=== PATIENT | female | born 1980 | race Caucasian/White ===

== ENCOUNTER 2020-04-25 11:04 | Emergency (ER) | payer OTHER ==
[~2020-04-25] VITALS: Ht 162.6 cm; Wt 93.5 kg
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
[2020-04-25 12:05] VITALS: BP 98/72
== END 2020-04-25 12:05 | disposition home or self-care (01) ==
LOC: ER 11:04
DX: T76.21XA Adult sexual abuse, suspected, initial encounter (principal); R51.9 Headache, unspecified; X58.XXXA Exposure to other specified factors, initial encounter; Y93.89 Activity, other specified; Y92.89 Other specified places as the place of occurrence of the external cause; Y99.8 Other external cause status
CPT/HCPCS: 99281

== ENCOUNTER 2020-04-26 19:57 | Emergency (ER) | payer OTHER ==
[~2020-04-26] VITALS: Ht 162.6 cm; Wt 93.5 kg
[2020-04-26] MEDS ORDERED: IV RINGERS SOLUTION,LACTATED 1,000 ML IV ONE ×2 (20:30→22:45)
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
[2020-04-26 21:12] LABS: CALCIUM 9.1 mg/dL (8.5-10.1); GFR 61.4; POTASSIUM 3.6 mmol/L (3.5-5.1)
[2020-04-26 21:15] LABS: BASO % 0 % (0-3); EOS # 0.1 x10^3/uL (0.0-0.7); EOS % 1 % (0-3); HEMATOCRIT 43.7 % (36.0-47.0); HEMOGLOBIN 14.6 g/dL (12.0-15.5); LYMPH # 1.8 x10^3/uL (1.0-4.8); LYMPH % 25 % (24-48); MEAN CORPUSCULAR HEMOGLOBIN 32 pg (25-35); MEAN CORPUSCULAR HGB CONC 33 g/dL (31-37); MEAN CORPUSCULAR VOLUME 94 fL (79-100); MONO # 0.6 x10^3/uL (0.0-1.1); MONO % 9 % (0-9); NEUT # 4.5 x10^3uL (1.8-7.7); NEUT % 65 % (31-73); PLATELET COUNT 256 x10^3/uL (140-400); RED BLOOD COUNT 4.63 x10^6/uL (3.50-5.40); RED CELL DISTRIBUTION WIDTH 13.5 % (11.5-14.5)
[2020-04-26 21:17] LABS: ALBUMIN 3.8 g/dL (3.4-5.0); ALBUMIN/GLOBULIN RATIO 1.1 (1.0-1.7); TOTAL BILIRUBIN 0.4 mg/dL (0.2-1.0); TOTAL PROTEIN 7.3 g/dL (6.4-8.2)
[2020-04-26 21:21] LABS: COLOR,URINE BROWN
[2020-04-26 21:22] LABS: BACTERIA,URINE FEW /HPF (0-FEW); BARBITURATES NEG (NEG); BENZODIAZEPINES NEG (NEG); BILIRUBIN,URINE MOD (NEG); CANNABINOIDS POS (NEG); CLARITY,URINE TURBID; COCAINE NEG (NEG); GLUCOSE,URINE NEG (NEG); METHADONE NEG (NEG); NITRITE,URINE POS (NEG); OPIATES NEG (NEG); PHENCYCLIDINE NEG (NEG); SQUAMOUS EPITHELIAL CELL,UR MANY /LPF; UROBILINOGEN,URINE 0.2 mg/dL (0.2 mg/dL)
[2020-04-26 21:25] LABS: AMPHETAMINE/METHAMPHETAMINE POS (NEG)
[2020-04-26 21:49] LABS: SALIC < 2.8 mg/dL (2.8-20.0)
[2020-04-26 21:50] LABS: ACETAMIN < 2.0 mcg/mL (10-30)
[2020-04-26] MEDS ORDERED: HALOPERIDOL LACT 5 MG/ML VIAL. IVP ONE (22:45)
[2020-04-26] MEDS ORDERED: LORazepam 1 MG TABLET PO ONE (22:45)
[2020-04-26] MEDS ORDERED: IV NORMAL SALINE 50ML 50 ML ONE (23:03)
[2020-04-26] MEDS ORDERED: cefTRIAXone SODIUM 1 GM VIAL ONE (23:03)
[2020-04-27 00:25] VITALS: BP 119/66
[2020-04-27] MEDS ORDERED: CEPH500C PO (00:31)
== END 2020-04-27 00:47 ==
LOC: ER 19:57
DX: F22 Delusional disorders (principal); N39.0 Urinary tract infection, site not specified; Z20.822 Contact with and (suspected) exposure to COVID-19; F15.10 Other stimulant abuse, uncomplicated; F41.9 Anxiety disorder, unspecified; F31.9 Bipolar disorder, unspecified; M79.7 Fibromyalgia; Z90.49 Acquired absence of other specified parts of digestive tract; Z98.51 Tubal ligation status; Z98.890 Other specified postprocedural states; Z91.012 Allergy to eggs; Z91.013 Allergy to seafood
CPT/HCPCS: 36415; 80053; 80307; 80329; 81001; 81025; 82550; 84443; 85025; 87086; 87426; 96361; 96365; 96375; 99284; C9803; J0696; J1630; J7120; U0003; G0480

== ENCOUNTER → 2020-11-14 | Outpatient (CLI) | payer OTHER ==
[~2020-11-14] MED LIST: CEPH500C PO
--- NOTE | 2020-11-14 12:13 | RAD ---
XR HAND_LEFT 3 VIEWS History: Left fifth digit pain Comparison: None. Technique: 3 views of left hand. Findings: Mild periarticular osteopenia. No fracture or dislocaton. No osseous erosive process. No significant degenerative changes. Soft tissues are unremarkable. Impression: 1. No acute osseous abnormality of the left hand. 2. Mild periarticular osteopenia can be seen in etiologies such as rheumatoid arthritis, however no erosive process identified. Electronically signed by: Eliecer Awan MD (11/14/2020 12:11 PM) [id number]
== END ==
LOC: PMG 11:40
PROVIDERS: ATTEND Nurse Practitioner Family
DX: M85.842 Other specified disorders of bone density and structure, left hand (principal)
CPT/HCPCS: 73130

== ENCOUNTER 2020-12-08 17:45 | Emergency (ER) | payer OTHER ==
[~2020-12-08] VITALS: Ht 162.6 cm; Wt 89.0 kg
--- NOTE | 2020-12-08 18:22 | PHYS DOC ---
Past History Past Medical History: Anxiety, Bipolar, Fibromyalgia (ILYA CHRISTIE APRN) Past Surgical History: Cholecystectomy, Tubal ligation, Other Additional Past Surgical Histo: D&C; 5th finger surgery (ILYA CHRISTIE APRN) Alcohol Use: None (ILYA CHRISTIE APRN) General Adult EDM: Chief Complaint: SUICIDAL IDEATION HPI: HPI: Patient is a 40-year-old female who presents to the emergency department for suicidal ideation and attempt. Patient states that around 1630 she took 60 1mg prazosin. Patient states that she takes this medication for night terrors she states that she took these medications to kill herself in response to her daughter being taken into [facility] custody. Patient reports multiple attempts of suicide in the past. She reports being inpatient at [facility] 2 months ago. Following admission is remarkable she was placed on risperidone. Patient is supposed to follow-up with the [facility] outpatient but does not find it very useful and does not follow-up as she is supposed to. Patient's only complaint is a frontal headache. She states that it is mild. She denies any nausea, vomiting, chest pain, shortness of breath, visual changes, hallucinati ons. Patient denies any homicidal ideation. (ILYA CHRISTIE APRN) Review of Systems: Review of Systems: Eyes: See HPI Respiratory: See HPI Cardiovascular: See HPI GI: See HPI Neurologic: See HPI Psychiatric: See HPI (ILYA CHRISTIE APRN) Allergies: Allergies: Allergies Coded Allergies Type Severity Reaction Last Updated Verified egg Allergy Unknown 04/25/20 Yes shrimp Allergy Unknown 04/25/20 Yes (ILYA CHRISTIE APRN) Physical Exam: PE: Constitutional: Well developed, well nourished, no acute distress, non-toxic appearance. [] HENT: Normocephalic, atraumatic Eyes: PERRLA, 4 mm bilaterally EOMI, conjunctiva normal, no discharge. [] Neck: Normal range of motion, no stridor Cardiovascular:Heart rate tachycardic rhythm, no murmur [] Lungs & Thorax: Bilateral breath sounds clear to auscultation [] Abdomen: soft, no tenderness, no masses, no pulsatile masses. [] Skin: Warm, dry, no erythema, no rash. [] Back: Normal range of motion Extremities: No tenderness, no cyanosis, no clubbing, ROM intact, no edema. [] Neurologic: Alert and oriented X 3, normal motor function, normal sensory function, no focal deficits noted. [] Psychologic: Affect normal, judgement normal, mood normal. [] (ILYA CHRISTIE APRN) Current Patient Data: Labs: Laboratory Tests Test 12/08/20 18:04 12/08/20 18:11 White Blood Count 10.1 x10^3/uL Red Blood Count 4.68 x10^6/uL Hemoglobin 15.1 g/dL Hematocrit 43.9 % Mean Corpuscular Volume 94 fL Mean Corpuscular Hemoglobin 32 pg Mean Corpuscular Hemoglobin Concent 34 g/dL Red Cell Distribution Width 13.6 % Platelet Count 238 x10^3/uL Neutrophils (%) (Auto) 73 % Lymphocytes (%) (Auto) 21 % Monocytes (%) (Auto) 6 % Eosinophils (%) (Auto) 1 % Basophils (%) (Auto) 1 % Neutrophils # (Auto) 7.3 x10^3uL Lymphocytes # (Auto) 2.1 x10^3/uL Monocytes # (Auto) 0.6 x10^3/uL Eosinophils # (Auto) 0.0 x10^3/uL Basophils # (Auto) 0.0 x10^3/uL Urine Collection Type Unknown Urine Color Yellow Urine Clarity Clear Urine pH 6.0 Urine Specific [place] 1.010 Urine Protein Neg Urine Glucose (UA) Neg mg/dL Urine Ketones (Stick) Neg mg/dL Urine Blood Neg Urine Nitrite Neg Urine Bilirubin Neg Urine Urobilinogen Dipstick 0.2 mg/dL Urine Leukocyte Esterase Small Urine RBC 0 /HPF Urine WBC 5-10 /HPF Urine Squamous Epithelial Cells Mod /LPF Urine Bacteria Mod /HPF Sodium Level 140 mmol/L Potassium Level 3.5 mmol/L Chloride Level 103 mmol/L Carbon Dioxide Level 22 mmol/L Anion Gap 15 Blood Urea Nitrogen 10 mg/dL Creatinine 0.9 mg/dL Estimated GFR (Cockcroft-Gault) 69.3 BUN/Creatinine Ratio 11 Glucose Level 94 mg/dL Calcium Level 9.5 mg/dL Total Bilirubin 0.3 mg/dL Aspartate Amino Transf (AST/SGOT) 16 U/L Alanine Aminotransferase (ALT/SGPT) 21 U/L Alkaline Phosphatase 61 U/L Total Protein 7.3 g/dL Albumin 4.0 g/dL Albumin/Globulin Ratio 1.2 Salicylates Level 5.0 mg/dL Salicylate Last Dose Date Na Salicylate Last Dose Time Na Urine Opiates Screen Neg Urine Methadone Screen Neg Acetaminophen Level < 2.0 mcg/mL Acetaminophen Last Dose Date Na Acetaminophen Last Dose Time Na Urine Barbiturates Neg Urine Phencyclidine Screen Neg Urine Amphetamine/Methamphetamine Neg Urine Benzodiazepines Screen Neg Urine Cocaine Screen Neg Urine Cannabinoids Screen Pos Ethyl Alcohol Level 12 mg/dL Urine Ethyl Alcohol Pos SARS-CoV-2 Antigen (Rapid) Negative Current Medications Medications (Trade) Dose Ordered Sig/Arvind Route PRN Reason Start Time Stop Time Status Last Admin Dose Admin Sodium Chloride 1,000 ml @ 1,000 mls/hr 1X ONCE IV 12/08/20 18:30 12/08/20 19:29 DC Cephalexin HCl (Keflex) 500 mg 1X ONCE PO 12/08/20 20:15 12/08/20 20:16 DC Vital Signs: Vital Signs Date Time Temp Pulse Resp B/P (MAP) Pulse Ox O2 Delivery O2 Flow Rate FiO2 12/08/20 17:54 97.7 109 16 118/72 (87) 97 Room Air (ILYA CHRISTIE APRN) EKG: EKG: EKG performed by ER staff at 1815 shows sinus rhythm with a heart rate of 91, QTc of 447, no STEMI read by Dr. Esqueda at 1821. [] (ILYA CHRISTIE APRN) Radiology/Procedures: Radiology/Procedures: [] (ILYA CHRISTIE APRN) Heart Score: C/O Chest Pain: No Risk Factors: Risk Factors: DM, Current or recent (<one month) smoker, HTN, HLP, family history of CAD, obesity. Risk Scores: Score 0 - 3: 2.5% MACE over next 6 weeks - Discharge Home Score 4 - 6: 20.3% MACE over next 6 weeks - Admit for Clinical Observation Score 7 - 10: 72.7% MACE over next 6 weeks - Early Invasive Strategies (ILYA CHRISTIE APRN) Course & Med Decision Making: Course & Med Decision Making Pertinent Labs and Imaging studies reviewed. (See chart for details) Patient is a 40-year-old female who presents to the emergency department for suicidal ideation and attempt. Patient states that around 1630 she took 60 1mg prazosin. I spoke with poison control who advised to watch for tachycardia, hypotension, [employer] depression. Treatment for this is supportive care. They advised to watch for seizure-like activity or agitation. If patient develops hy potension, fluids and vasopressors can be ordered. They advised to order along with regular blood work. Tylenol and salicylate level as well as an EKG and cardiac monitoring. They advised to monitor patient for 6 hours. In addition to this lab work, screening lab work performed for our psychiatric assessment team consultation. Patient's vital signs are stable at this time she is mildly tachycardic and not hypotensive at triage. Patients lab work was unremarkable. She was positive for marijuana and alcohol but had a low ethanol level. Patients UA was positive for UTI and she was treated with antibiotic and given first dose in ER. Patient evaluated by PAT and is pending inpatient placement at this time 2210. 2336: RN received a phone call from [facility] requesting serial orthostatic vital signs over a couple of hours prior to them determining if they will accept patient. Order placed. Patient treated with IV fluids. 0028: Awaiting serial orthostatic vital signs and potential placement at [facility]. I discussed patients case with supervising physician and he will assume patient care at this time 0041. (ILYA CHRISTIE APRN) Dragon Disclaimer: Dragon Disclaimer: This electronic medical record was generated, in whole or in part, using a voice recognition dictation system. (ILYA CHRISTIE APRN) Attending Co-Sign The patient was seen and interviewed as well as examined at the bedside. The chart was reviewed. The case was discussed. Agree with the plan of care. (MARIAN ESQUEDA DO) Departure Departure: Impression: Primary Impression: Suicidal ideation Disposition: [facility] Condition: STABLE Referrals: NON,STAFF (PCP) Patient Instructions: Suicidal Feelings, How to Help Yourself Scripts Cephalexin (CEPHALEXIN) 500 Mg Tablet 1 TAB PO BID for UTI for 7 Days, #14 TAB 0 Refills Prov: ILYA CHRISITE APRN 12/08/20 ILYA CHRISTIE APRN Dec 08, 2020 18:22 MARIAN ESQUEDA DO Dec 09, 2020 01:29
--- NOTE | 2020-12-08 18:24 | EKG ---
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
[2020-12-08] MEDS: IV NORMAL SALINE 1,000ML 1,000 ML IV ONE (18:30)
[2020-12-08 18:41] LABS: BASO % 1 % (0-3); EOS % 1 % (0-3); HEMATOCRIT 43.9 % (36.0-47.0); HEMOGLOBIN 15.1 g/dL (12.0-15.5); LYMPH # 2.1 x10^3/uL (1.0-4.8); LYMPH % 21 % (24-48); MEAN CORPUSCULAR HEMOGLOBIN 32 pg (25-35); MEAN CORPUSCULAR HGB CONC 34 g/dL (31-37); MEAN CORPUSCULAR VOLUME 94 fL (79-100); MONO # 0.6 x10^3/uL (0.0-1.1); MONO % 6 % (0-9); NEUT # 7.3 x10^3uL (1.8-7.7); NEUT % 73 % (31-73); PLATELET COUNT 238 x10^3/uL (140-400); RED BLOOD COUNT 4.68 x10^6/uL (3.50-5.40); RED CELL DISTRIBUTION WIDTH 13.6 % (11.5-14.5); WHITE BLOOD COUNT 10.1 x10^3/uL (4.0-11.0)
[2020-12-08 18:50] LABS: CALCIUM 9.5 mg/dL (8.5-10.1); CREATININE 0.9 mg/dL (0.6-1.0); GFR 69.3; POTASSIUM 3.5 mmol/L (3.5-5.1)
[2020-12-08 18:54] LABS: BARBITURATES NEG (NEG); BENZODIAZEPINES NEG (NEG); CANNABINOIDS POS (NEG); CLARITY,URINE CLEAR; COCAINE NEG (NEG); COLOR,URINE YELLOW; METHADONE NEG (NEG); OPIATES NEG (NEG); PHENCYCLIDINE NEG (NEG)
[2020-12-08 18:55] LABS: BACTERIA,URINE MOD /HPF (0-FEW); BILIRUBIN,URINE NEG (NEG); GLUCOSE,URINE NEG (NEG); NITRITE,URINE NEG (NEG); RBC,URINE 0 /HPF (0-2); SQUAMOUS EPITHELIAL CELL,UR MOD /LPF; UROBILINOGEN,URINE 0.2 mg/dL (0.2 mg/dL)
[2020-12-08 18:56] LABS: AMPHETAMINE/METHAMPHETAMINE NEG (NEG)
[2020-12-08 18:57] LABS: ALBUMIN/GLOBULIN RATIO 1.2 (1.0-1.7); TOTAL BILIRUBIN 0.3 mg/dL (0.2-1.0); TOTAL PROTEIN 7.3 g/dL (6.4-8.2)
[2020-12-08 19:40] LABS: ACETAMIN < 2.0 mcg/mL (10-30)
[2020-12-08] MEDS ORDERED: CEPH500T PO (22:12)
[2020-12-09] MEDS: IV NORMAL SALINE 1,000ML 1,000 ML IV ONE
[2020-12-09] MEDS ORDERED: CEPHALEXIN 250 MG CAPSULE ONE (04:45)
[2020-12-09] MEDS: CEPHALEXIN 250 MG CAPSULE PO ONE (04:50)
[2020-12-09 06:21] VITALS: BP 102/60
== END 2020-12-09 08:22 ==
LOC: ER 17:45
DX: R45.851 Suicidal ideations (principal); F41.9 Anxiety disorder, unspecified; F31.9 Bipolar disorder, unspecified; M79.7 Fibromyalgia; Z20.822 Contact with and (suspected) exposure to COVID-19; Z91.013 Allergy to seafood; Z91.012 Allergy to eggs
CPT/HCPCS: 36415; 80053; 80307; 80329; 81001; 85025; 87086; 87426; 93005; 96360; 96361; 99285; G0480; J7030; U0003

== ENCOUNTER 2020-12-23 14:18 | Emergency (ER) | payer OTHER ==
[~2020-12-23] VITALS: Ht 162.6 cm; Wt 90.0 kg
[~2020-12-23 14:18] MED LIST changes: +CEPH500T PO
--- NOTE | 2020-12-23 14:40 | PHYS DOC ---
Past History Past Medical History: Anxiety, Bipolar, Fibromyalgia Past Surgical History: Cholecystectomy, Tubal ligation, Other Additional Past Surgical Histo: D&C; 5th finger surgery Alcohol Use: Occasionally General Adult EDM: Chief Complaint: ALLERGIC REACTION HPI: HPI: Patient is a 40-year-old female who presents to the emergency department from urgent care for an allergic reaction. Patient states that she is allergic to egg whites and shellfish. She has widespread itchy hives to her entire body. She reports that she did feel like there was a lump in her throat and had pain w ith swallowing but that improved after she took a Claritin. Patient denies shortness of breath, pain with swallowing, nausea, vomiting or fevers. Review of Systems: Review of Systems: 14 body systems of the review of systems have been reviewed. See HPI for pertinent positive and negative responses, otherwise all other systems are negative, nonpertinent or noncontributory Current Medications: Current Meds: Current Medications Medications (Trade) Dose Ordered Sig/Arvind Start Time Stop Time Status Last Admin Dose Admin Diphenhydramine HCl (Benadryl) 50 mg 1X ONCE 12/23/20 14:30 12/23/20 14:31 UNV Famotidine (Pepcid Vial) 40 mg 1X ONCE 12/23/20 14:30 12/23/20 14:31 UNV Methylprednisolone Sodium Succinate (SOLU-Medrol 125MG VIAL) 125 mg 1X ONCE 12/23/20 14:30 12/23/20 14:31 UNV Allergies: Allergies: Allergies Coded Allergies Type Severity Reaction Last Updated Verified egg Allergy Unknown 04/25/20 Yes shrimp Allergy Unknown 04/25/20 Yes Physical Exam: PE: Constitutional: Well developed, well nourished, no acute distress, non-toxic appearance. [] HENT: Normocephalic, atraumatic, bilateral external ears normal, oropharynx moist, no airway erythema or enlargement, 3 papillae noted to the back of patient's tongue that are minimally erythematous, no oral exudates, nose normal. [] Eyes: PERRL, EOMI, conjunctiva normal, no discharge. [] Neck: Normal range of motion, no tenderness, supple, no stridor. [] Cardiovascular:Heart rate tachycardic rhythm, no murmur [] Lungs & Thorax: Bilateral breath sounds clear to auscultation [] Abdomen: Bowel sounds normal, soft, no tenderness, no masses, no pulsatile masses. [] Skin: Warm, dry, no erythema, hive-like erythematous rash noted to entire body Back: Normal range of motion Extremities: No tenderness, no cyanosis, no clubbing, ROM intact, no edema. [] Neurologic: Alert and oriented X 3, normal motor function, normal sensory function, no focal deficits noted. [] Psychologic: Affect normal, judgement normal, mood normal. [] EKG: EKG: [] Radiology/Procedures: Radiology/Procedures: [] Heart Score: C/O Chest Pain: N/A Risk Factors: Risk Factors: DM, Current or recent (<one month) smoker, HTN, HLP, family history of CAD, obesity. Risk Scores: Score 0 - 3: 2.5% MACE over next 6 weeks - Discharge Home Score 4 - 6: 20.3% MACE over next 6 weeks - Admit for Clinical Observation Score 7 - 10: 72.7% MACE over next 6 weeks - Early Invasive Strategies Course & Med Decision Making: Course & Med Decision Making Pertinent Labs and Imaging studies reviewed. (See chart for details) [] Patient presents to the emergency department for an allergic reaction. Patient was noted to have widespread erythematous hives that were itchy to her entire body. There is no airway edema noted. Patient treated with Benadryl, Pepcid and Solu-Medrol. Patient reports improvement in her symptoms following treatment in the ER, her hives have improved, airway remains patent with no edema. VSS, no longer tachycardic. Patient is able to maintain secretions. Hypokalemia noted-replaced in ER. Advised to increase potassium intake at home. Leukocytosis most likely due to allergic reaction. Patient be discharged home with steroid, advised to take Benadryl and Pepcid at home. Follow-up with primary care provider. I discussed with patient all findings and diagnostic testing as well as the need to follow-up with PCP for further evaluation and treatment or return to the ER if any new or worsening symptoms. Strict return precautions were also discussed at length. Patient voiced understanding and agr eement with the plan. Patient is hemodynamically stable at the time of disposition. Oh Disclaimer: Oh Disclaimer: This electronic medical record was generated, in whole or in part, using a voice recognition dictation system. Departure Departure: Impression: Primary Impression: Allergic reaction Qualified Codes: T78.40XA - Allergy, unspecified, initial encounter Disposition: HOME / SELF CARE / HOMELESS Condition: GOOD Referrals: DASHA MARIE (PCP) Patient Instructions: Food Allergy and Anaphylaxis Additional Instructions: You were seen in the emergency department today for an allergic reaction. You reported improvement in your symptoms following treatment in the emergency department. You were noted to have a mild decrease in your potassium levels, this was replaced in ER. Make sure you are eating potassium rich foods at home like green leafy vegetables. At home you can take 50 mg of Benadryl every 6-8 hours. You can also take 20 mg of Pepcid twice a day. You are being discharged home with a steroid, take this as directed. Follow-up with your primary care provider tomorrow regarding your ER visit. Return to the emergency department if you develop chest pain, shortness of breath, difficulty swallowing or breathing, high fevers refractory to treatment or intractable nausea or vomiting. EMERGENCY DEPARTMENT GENERAL DISCHARGE INSTRUCTIONS Thank you for coming to [facility] (ED) today and trusting us with you care. We trust that you had a positivie experience in our Emergency Department. If you wish to speak to the department management, you may call the director at [phone]. YOUR FOLLOW UP INSTRUCTIONS ARE FOLLOWS: 1. Do you have a private Doctor? If you do not have a private doctor, please ask for a resource list of physicians or clinics that may be able to assist you with follow up care. 2. The Emergency Physician has interpreted your x-rays. The X-Ray specialist will also review them. If there is a change in the findings, you will be notified in 48 hours when at all possible. 3. A lab test or culture has been done, your results will be reviewed and you will be notified if you need a change in treatment. ADDITIONAL INSTRUCTIONS AND INFORMATION: 1. Your care today has been supervised by a physician who is specially trained in emergency care. Many problems require more than one evaluation for a complete diagnosis and treatment. We recommend that you schedule your follow up appointment as recommended to ensure complete treatment of you illness or injury. If you are unable to obtain follow up care and continue to have a problem, or if your condition worsens, we recommend that you return to the ED. 2. We are not able to safely determine your condition over the phone nor are we able to give sound medical advice over the phone. For these safety reasons, if you call for medical advice we will ask you to come to the ED for further evaluation. 3. If you have any questions regarding these discharge instructions please call the ED at [phone]. SAFETY INFORMATION: In the interest of safety, wellness, and injury prevention; we encourage you to wear your sealbelt, if you smoke; quite smoking, and we encourage family to use a protective helmet for bicycling and other sporting events that present an increased risk for head injury. IF YOUR SYMPTOMS WORSEN OR NEW SYMPTOMS DEVELOP, OR YOU HAVE CONCERNS ABOUT YOUR CONDITION; OR IF YOUR CONDITION WORSENS WHILE YOU ARE WAITING FOR YOUR FOLLOW UP APPOINTMENT; EITHER CONTACT YOUR PRIMARY CARE DOCTOR, THE PHYSICIAN WHOSE NAME AND NUMBER YOU WERE GIVEN, OR RETURN TO THE ED IMMEDIATELY. Scripts Prednisone (PREDNISONE) 20 Mg Tablet 2 TAB PO DAILY for allergies for 5 Days, #10 TAB 0 Refills Prov: ILYA CHRISTIE APRN 12/23/20 ILYA CHRISTIE APRN Dec 23, 2020 14:40
[2020-12-23] MEDS: methylPREDNISolone SOD SUCC PF 125 MG/2 ML VIAL. IV ONE (15:07)
[2020-12-23] MEDS: FAMOTIDINE 20 MG/2 ML VIAL IVP ONE (15:08)
[2020-12-23] MEDS: diphenhydrAMINE 50 MG/ML VIAL IVP ONE (15:08)
[2020-12-23 15:24] VITALS: BP 134/78
[2020-12-23 15:37] LABS: BASO # 0.1 x10^3/uL (0.0-0.2); BASO % 0 % (0-3); EOS # 0.1 x10^3/uL (0.0-0.7); EOS % 1 % (0-3); HEMATOCRIT 47.1 % (36.0-47.0); HEMOGLOBIN 15.9 g/dL (12.0-15.5); LYMPH # 2.7 x10^3/uL (1.0-4.8); LYMPH % 20 % (24-48); MEAN CORPUSCULAR HEMOGLOBIN 32 pg (25-35); MEAN CORPUSCULAR HGB CONC 34 g/dL (31-37); MEAN CORPUSCULAR VOLUME 95 fL (79-100); MONO # 0.7 x10^3/uL (0.0-1.1); MONO % 5 % (0-9); NEUT # 9.9 x10^3uL (1.8-7.7); NEUT % 74 % (31-73); PLATELET COUNT 278 x10^3/uL (140-400); RED BLOOD COUNT 4.97 x10^6/uL (3.50-5.40); RED CELL DISTRIBUTION WIDTH 13.6 % (11.5-14.5); WHITE BLOOD COUNT 13.4 x10^3/uL (4.0-11.0)
[2020-12-23 15:59] LABS: CALCIUM 9.6 mg/dL (8.5-10.1); CREATININE 0.9 mg/dL (0.6-1.0); GFR 69.3; POTASSIUM 3.4 mmol/L (3.5-5.1)
[2020-12-23 16:04] LABS: ALBUMIN 3.8 g/dL (3.4-5.0); ALBUMIN/GLOBULIN RATIO 1.2 (1.0-1.7); TOTAL BILIRUBIN 0.3 mg/dL (0.2-1.0)
[2020-12-23] MEDS ORDERED: PRED20TA PO (16:20)
[2020-12-23] MEDS: POTASSIUM CHLORIDE 20 MEQ TABLET.ER. PO ONE (16:30)
== END 2020-12-23 16:48 | disposition home or self-care (01) ==
LOC: ER 14:18
DX: T78.40XA Allergy, unspecified, initial encounter (principal); X58.XXXA Exposure to other specified factors, initial encounter
CPT/HCPCS: 36415; 80053; 85025; 96374; 96375; 99284; J1200; J2930; J3490

== ENCOUNTER 2021-03-09 15:36 | Emergency (ER) | payer OTHER ==
[~2021-03-09] VITALS: Ht 162.6 cm; Wt 90.0 kg
[~2021-03-09 15:36] MED LIST changes: +PRED20TA PO
[2021-03-09 15:40] VITALS: BP 122/75
--- NOTE | 2021-03-09 15:47 | PHYS DOC ---
Past History Past Medical History: Anxiety, Bipolar, Fibromyalgia Additional Past Medical Histor: fibromyalgia Past Surgical History: Cholecystectomy Additional Past Surgical Histo: D&C; 5th finger surgery Alcohol Use: None Adult General Chief Complaint Chief Complaint: ALLERGIC REACTION HPI HPI Patient is a 41-year-old female presenting via POV for allergic reaction. States she thinks she is allergic to the color/dye on the tablets of Tylenol. Reports approximately 3 hours prior to arrival taking x1 [id number] Tylenol and approximately 1 hour later started having a generalized rash that appeared on her face, upper extremities and torso. She took an unknown amount of children's Benadryl approximately 45 minutes prior to arrival that improved her symptoms but still has a rash prompting her to come in for evaluation Review of Systems Review of Systems Fourteen body systems of review of systems have been reviewed. See HPI for pertinent positives and negative responses, other bang all other systems are negative, non-pertinent or non-contributory Allergies Allergies Allergies Coded Allergies Type Severity Reaction Last Updated Verified egg Allergy Unknown 04/25/20 Yes shrimp Allergy Unknown 04/25/20 Yes Physical Exam Physical Exam Constitutional: Well developed, well nourished, no acute distress, non-toxic appearance. HENT: Normocephalic, atraumatic, bilateral external ears normal, oropharynx moist, no oral exudates, nose normal. No phonation changes, tolerating her secretions and speaking in full sentences Eyes: PERRLA, EOMI, conjunctiva normal, no discharge. Neck: Normal range of motion, no tenderness, supple, no stridor. Cardiovascular: Heart rate regular, sinus rhythm, no murmurs rubs or gallops Lungs & Thorax: Bilateral breath sounds clear to auscultation Abdomen: Bowel sounds normal, soft, no tenderness, no masses, no pulsatile masses. Nonsurgical abdomen, no peritoneal signs Skin: Warm, dry, no erythema, eukaryal rash present to bilateral cheeks, upper extremities and torso Back: No tenderness, no CVA tenderness. Extremities: No tenderness, no cyanosis, no clubbing, ROM intact, no edema. Neurologic: Alert and oriented X 3, grossly normal motor & sensory function, no focal deficits noted. Psychologic: Affect normal, judgement normal, mood normal. Current Patient Data Vital Signs Vital Signs Date Time Temp Pulse Resp B/P (MAP) Pulse Ox O2 Delivery O2 Flow Rate FiO2 03/09/21 15:40 97.8 102 18 122/75 (91) 98 Room Air Vital Signs Date Time Temp Pulse Resp B/P (MAP) Pulse Ox O2 Delivery O2 Flow Rate FiO2 03/09/21 15:40 97.8 102 18 122/75 (91) 98 Room Air EKG EKG [] Radiology/Procedures Radiology/Procedures [] Heart Score C/O Chest Pain: No Risk Factors: Risk Factors: DM, Current or recent (<one month) smoker, HTN, HLP, family history of CAD, obesity. Risk Scores: Risk Factors: DM, Current or recent (<one month) smoker, HTN, HLP, family history of CAD, obesity. Course & Med Decision Making Course & Med Decision Making ABCs unremarkable HPI and physical exam consistent with likely drug-related reaction from Tylenol with suspicion being dye on actual tablets Patient received Benadryl prior to arrival, steroids and Pepcid administered while in ER setting with near complete resolution of patient's symptoms and rash I disclosed no indication for further diagnostic work-up and/or hospitalization with low risk for genuine anaphylaxis requiring EpiPen etc., patient agreed Joint decision made to discharge home with continued [id number] Pepcid and antihistamine use. I recommended prescription for steroids but patient deferred. As such, appropriate supportive care, avoidance of suspect medication allergy, and close PCP follow-up advised Oh Disclaimer Oh Disclaimer This electronic medical record was generated, in whole or in part, using a voice recognition dictation system. Departure Departure: Impression: Primary Impression: Allergic reaction Disposition: HOME / SELF CARE / HOMELESS Condition: STABLE Referrals: DASHA MARIE (PCP) Additional Instructions: You were seen for a possible allergic reaction. You should continue to take [id number] Benadryl and/or equivalent such as Zyrtec, Claritin, Sabrina etc. in addition to an sxpa-thl-rwogjne stomach medication such as Pepcid. You were offered steroids but deferred which is okay, the most important thing is avoiding the likely allergen which was the Tylenol that you ingested several hours prior to arrival. You need to follow up in the allergy or medicine clinic for further evaluation. If you start to have shortness of breath, facial swelling, tongue swelling, difficulty swallowing, or any other concerning symptoms you should call 911 to return to the ED. REKHA ARAUZ DO Mar 09, 2021 15:47
[2021-03-09] MEDS ORDERED: FAMOTIDINE 20 MG TABLET PO ONE (16:00)
[2021-03-09] MEDS ORDERED: predniSONE 20 MG TABLET PO ONE (16:00)
== END 2021-03-09 16:56 | disposition home or self-care (01) ==
LOC: ER 15:36
DX: T78.40XA Allergy, unspecified, initial encounter (principal); F41.9 Anxiety disorder, unspecified; F31.9 Bipolar disorder, unspecified; M79.7 Fibromyalgia; Z91.012 Allergy to eggs; Z91.013 Allergy to seafood; X58.XXXA Exposure to other specified factors, initial encounter
CPT/HCPCS: 99283; J7512

== ENCOUNTER → 2021-03-18 | Outpatient (CLI) | payer OTHER ==
[2021-03-09 15:40] VITALS: BP 122/75
--- NOTE | 2021-03-18 09:15 | RAD ---
INDICATION: Reason: DYSPNEA / Spl. Instructions: / History: COMPARISON: None. FINDINGS: 2 view of chest obtained. No focal airspace consolidation. Cardiomediastinal contour unremarkable. No acute osseous abnormality. IMPRESSION: * No focal airspace consolidation or edema. Electronically signed by: Pantera Khalil MD (03/18/2021 9:13 AM) [id number]
== END ==
LOC: RAD 08:58
PROVIDERS: ATTEND Physician Assistant
DX: R06.00 Dyspnea, unspecified (principal)
CPT/HCPCS: 71046